=== PATIENT | female | born 1965 | race Caucasian/White ===

== ENCOUNTER → 2017-01-15 | Outpatient (CLI) | payer OTHER ==
--- NOTE | 2017-01-18 09:47 | MM ---
Reason for exam: screening (asymptomatic). Last mammogram was performed 1 year and 5 months ago. History: Family history of endometrial cancer in grandmother at age 55. Physical Findings: A clinical breast exam by your physician is recommended on an annual basis and results should be correlated with mammographic findings. MG Screening Mammo w CAD Bilateral CC and MLO view(s) were taken. Prior study comparison: August 08, 2015, bilateral MG screening mammo w CAD. September 02, 2011, bilateral digital screening mammo w/CAD. The breast tissue is heterogeneously dense. This may lower the sensitivity of mammography. Benign calcifications. There is chronic nodularity bilaterally. No significant new findings when compared with previous films. ASSESSMENT: Benign, BI-RAD 2 RECOMMENDATION: Routine screening mammogram of both breasts in 1 year.
== END | disposition home or self-care (01) ==
LOC: RADMAMWWP 12:39
PROVIDERS: ATTEND Internal Medicine Critical Care Medicine
DX: Z12.31 Encounter for screening mammogram for malignant neoplasm of breast (principal)

== ENCOUNTER → 2018-01-28 | Outpatient (CLI) | payer OTHER ==
[2018-01-28 09:28] LABS: Basophils % (A) 1 %; Eosinophils # (A) 0.2 k/uL (0-0.7); Eosinophils % (A) 3 %; HCT 41.7 % (34.0-46.0); HGB 13.6 gm/dL (11.4-16.0); Lymphocytes # (A) 1.6 k/uL (1.0-4.8); Lymphocytes % (A) 26 %; MCH 28.6 pg (25.0-35.0); MCHC 32.5 g/dL (31.0-37.0); Mean Platelet Volume 7.7; Monocytes # (A) 0.4 k/uL (0-1.0); Monocytes % (A) 6 %; Neutrophils # (A) 3.7 k/uL (1.3-7.7); Neutrophils % (A) 62 %; Platelet Count 250 k/uL (150-450); RBC 4.74 m/uL (3.80-5.40); RDW 13.3 % (11.5-15.5)
[2018-01-28 09:55] LABS: ALT 27 U/L (9-52); AST 18 U/L (14-36); Albumin 4.1 g/dL (3.5-5.0); Alkaline Phosphatase 66 U/L (38-126); Anion Gap 13 mmol/L; Bilirubin, Delta 0.3 mg/dL (0.0-0.2); Bilirubin,Unconjugated 0.4 mg/dL (0.0-1.1); Blood Urea Nitrogen 9 mg/dL (7-17); Carbon Dioxide 27 mmol/L (22-30); Chloride 106 mmol/L (98-107); Cholesterol 168 mg/dL (<200); Glucose 88 mg/dL (74-99); HDL Cholesterol 56 mg/dL (40-60); LDL Cholesterol,Calculated 92 mg/dL (0-99); Potassium 4.6 mmol/L (3.5-5.1); Sodium 146 mmol/L (137-145); Total Bilirubin 0.7 mg/dL (0.2-1.3); Total Protein 6.9 g/dL (6.3-8.2); Triglycerides 101 mg/dL (<150)
[2018-01-28 10:44] LABS: C Reactive Protein <5.0 mg/L (<10.0)
[2018-01-28 12:02] LABS: Erythrocyte Sedimentation Rate 8 mm/hr (0-20)
[2018-01-28 17:57] LABS: Vitamin D 25 Hydroxy 23.4 ng/mL (30.0-100.0)
[2018-01-28 18:13] LABS: Rheumatoid Factor <4 IU/mL (0-15)
[2018-01-28 18:49] LABS: Hemoglobin A1C 5.3 % (4.0-6.0)
== END | disposition home or self-care (01) ==
LOC: LABWHC1 08:49
PROVIDERS: ATTEND Internal Medicine Critical Care Medicine
DX: Z00.00 Encounter for general adult medical examination without abnormal findings (principal)
CPT/HCPCS: 36415; 80053; 80061; 82248; 82306; 83036; 85025; 85652; 86038; 86140; 86431

== ENCOUNTER → 2018-03-14 | Outpatient (CLI) | payer OTHER ==
--- NOTE | 2018-03-15 09:37 | MM ---
Reason for exam: screening (asymptomatic). Last mammogram was performed 1 year and 2 months ago. History: Family history of endometrial cancer in grandmother at age 55. Physical Findings: A clinical breast exam by your physician is recommended on an annual basis and results should be correlated with mammographic findings. MG Screening Mammo w CAD Bilateral CC and MLO view(s) were taken. XCCL view(s) were taken of the right breast. Prior study comparison: January 15, 2017, bilateral MG screening mammo w CAD. August 08, 2015, bilateral MG screening mammo w CAD. The breast tissue is heterogeneously dense. This may lower the sensitivity of mammography. Focal asymmetry upper outer left breast 7.6cm from nipple. This finding is changed when compared with previous exams. ASSESSMENT: Incomplete: need additional imaging evaluation, BI-RAD 0 RECOMMENDATION: Special view mammogram of the left breast. If lesion persists on supplemental views, image directed ultrasound is recommended. [facility] will attempt to contact patient to return for supplemental views and ultrasound if indicated.
== END | disposition home or self-care (01) ==
LOC: RADMAMWWP 10:55
PROVIDERS: ATTEND Internal Medicine Critical Care Medicine
DX: Z12.31 Encounter for screening mammogram for malignant neoplasm of breast (principal)
CPT/HCPCS: 77067

== ENCOUNTER → 2018-03-28 | Outpatient (CLI) | payer OTHER ==
--- NOTE | 2018-03-28 08:34 | MM ---
Reason for exam: additional evaluation requested from abnormal screening. Last mammogram was performed less than 1 month ago. History: Family history of endometrial cancer in grandmother at age 55. Physical Findings: Nurse did not find any significant physical abnormalities on exam. MG Work Up Mamm w CAD LT Spot compression CC, spot compression MLO, and LM view(s) were taken of the left breast. Prior study comparison: March 14, 2018, bilateral MG screening mammo w CAD. January 15, 2017, bilateral MG screening mammo w CAD. The breast tissue is heterogeneously dense. This may lower the sensitivity of mammography. Benign calcifications in the left breast. The upper outer quadrant focal asymmetry appears similar to priors and improves on additional views appearing as fibroglandular tissue. These results were verbally communicated with the patient and result sheet given to the patient on 03/28/18. ASSESSMENT: Benign, BI-RAD 2 RECOMMENDATION: Return to routine screening mammogram schedule for both breasts.
== END | disposition home or self-care (01) ==
LOC: RADMAMWWP 07:39
PROVIDERS: ATTEND Internal Medicine Critical Care Medicine
DX: R92.8 Other abnormal and inconclusive findings on diagnostic imaging of breast (principal)
CPT/HCPCS: 77065

== ENCOUNTER 2018-07-22 09:55 | Day surgery (SDC) | payer OTHER ==
[2018-07-20 10:38] VITALS: BMI 35.4
[~2018-07-22 09:55] MED LIST: LACTATED RINGERS 1,000 ML IV SCH
[2018-07-22 10:28] VITALS: TEMP 97.5
[2018-07-22] MEDS ORDERED: LIDOCAINE 1% 20 ML VIAL (10MG/ML) FOR IV START INTRADERMA ONE (10:36)
[2018-07-22] MEDS ORDERED: PROPOFOL 10 MG/ML 20 ML VIAL IV ONE (10:54)
--- NOTE | 2018-07-22 10:57 | P.GSHP ---
History of Present Illness H&P Date: 07/22/18 Chief Complaint: Colon cancer screening Patient here today for colonoscopy. She has not had 1 previously. No family history of colon cancer. No bowel related complaints. Past Medical History Past Medical History: Asthma, Pneumonia, Thyroid Disorder Additional Past Medical History / Comment(s): Pneumonia 7 yrs ago. Hypothyroid. History of Any Multi-Drug Resistant Organisms: None Reported Past Surgical History: Tubal Ligation, Uterine Ablation Past Anesthesia/Blood Transfusion Reactions: Family History of Problems w/ Anesthesia Additional Past Anesthesia/Blood Transfusion Reaction / Comment(s): Mother takes alot to get her to go out. Past Psychological History: No Psychological Hx Reported Smoking Status: Never smoker Past Alcohol Use History: Occasional Past Drug Use History: None Reported - Past Family History Father Family Medical History: Pulmonary Embolus Brother(s) Family Medical History: Cancer, Deep Vein Thrombosis (DVT) Additional Family Medical History / Comment(s): Bladder cancer. Medications and Allergies Home Medications Medication Instructions Recorded Confirmed Type Levothyroxine Sodium [Synthroid] 125 mcg PO QAM 07/20/18 07/22/18 History Allergies Allergy/AdvReac Type Severity Reaction Status Date / Time aspirin Allergy Rash/Hives Verified 07/20/18 10:40 NSAIDS (Non-Steroidal Allergy Rash/Hives Verified 07/20/18 10:40 Anti-Inflamma Surgical - Exam Vital Signs Temp Pulse Resp BP Pulse Ox 97.5 F L 60 18 141/95 94 L 07/22/18 10:26 07/22/18 10:26 07/22/18 10:26 07/22/18 10:26 07/22/18 10:26 Physical exam: General: Well-developed, well-nourished HEENT: Normocephalic, sclerae nonicteric Abdomen: Nontender, nondistended Extremities: No edema Neuro: Alert and oriented Assessment and Plan (1) Colon cancer screening Narrative/Plan: Will proceed with colonoscopy at this time. Current Visit: Yes Status: Acute Code(s): Z12.11 - ENCOUNTER FOR SCREENING FOR MALIGNANT NEOPLASM OF COLON SNOMED Code(s): 316620293
--- NOTE | 2018-07-22 11:18 | P.PCN ---
Date of Procedure: 07/22/18 Procedure(s) Performed: PREOPERATIVE DIAGNOSIS: Colon cancer screening POSTOPERATIVE DIAGNOSIS: Diverticulosis PROCEDURE: Colonoscopy ANESTHESIA: MAC SURGEON: Rush James M.D. SPECIMENS: None ENDOSCOPIC PROCEDURE: The patient was placed on the endoscopy table in the left decubitus position. The Olympus colonoscope was inserted into the anus and passed under direct visualization to the base of the cecum. The appendiceal orifice was visualized. From that point the scope was slowly withdrawn inspecting all surfaces carefully. There were no neoplastic inflammatory or polypoid lesions throughout the cecum, ascending, transverse, descending, sigmoid and rectum. There was mild left-sided diverticulosis noted. Digital rectal examination was normal. The patient was taken to the recovery room in stable condition per anesthesia guidelines. RECOMMENDATIONS: Increase fiber. Follow-up colonoscopy 10 years.
[2018-07-22 11:34] VITALS: BP 148/73; PULSE 78; RESP 18
== END 2018-07-22 12:09 | disposition home or self-care (01) ==
LOC: ORWHC2ENDO 09:55
PROVIDERS: ATTEND Surgery
DX: Z12.11 Encounter for screening for malignant neoplasm of colon (principal); K57.30 Diverticulosis of large intestine without perforation or abscess without bleeding; J45.909 Unspecified asthma, uncomplicated; E03.9 Hypothyroidism, unspecified; Z98.51 Tubal ligation status; Z79.890 Hormone replacement therapy; Z88.6 Allergy status to analgesic agent
CPT/HCPCS: 81025; J2704; G0121

== ENCOUNTER → 2019-02-08 | Outpatient (CLI) | payer OTHER ==
[2019-02-08 09:09] LABS: Basophils # (A) 0.1 k/uL (0-0.2); Basophils % (A) 1 %; Eosinophils # (A) 0.2 k/uL (0-0.7); Eosinophils % (A) 3 %; HCT 42.3 % (34.0-46.0); HGB 13.4 gm/dL (11.4-16.0); Lymphocytes # (A) 1.5 k/uL (1.0-4.8); Lymphocytes % (A) 24 %; MCH 27.9 pg (25.0-35.0); MCHC 31.8 g/dL (31.0-37.0); MCV 87.6 fL (80.0-100.0); Mean Platelet Volume 7.5; Monocytes # (A) 0.3 k/uL (0-1.0); Monocytes % (A) 5 %; Neutrophils # (A) 4.2 k/uL (1.3-7.7); Neutrophils % (A) 66 %; Platelet Count 248 k/uL (150-450); RBC 4.82 m/uL (3.80-5.40); RDW 13.6 % (11.5-15.5); WBC 6.5 k/uL (3.8-10.6)
[2019-02-08 17:09] LABS: Hemoglobin A1C 5.7 % (4.0-6.0)
[2019-02-08 18:55] LABS: Albumin 4.2 g/dL (3.80-4.90); Albumin/Globulin Ratio 1.68 (1.60-3.17); Calcium 8.9 mg/dL (8.7-10.3); Globulin 2.5 g/dL (1.6-3.3); LDL Cholesterol,Calculated 112.2 mg/dL (0.0-131.0); Total Bilirubin 0.6 mg/dL (0.2-1.2); Total Protein 6.7 g/dL (6.2-8.2); VLDL Calculation 16.8 mg/dL (5.00-40.00)
== END | disposition home or self-care (01) ==
LOC: LABWHC1 08:08
PROVIDERS: ATTEND Internal Medicine Critical Care Medicine
DX: Z00.00 Encounter for general adult medical examination without abnormal findings (principal); J45.909 Unspecified asthma, uncomplicated; E03.9 Hypothyroidism, unspecified; E56.9 Vitamin deficiency, unspecified
CPT/HCPCS: 36415; 80053; 80061; 82306; 83036; 84439; 84443; 85025

== ENCOUNTER → 2020-02-16 | Outpatient (CLI) | payer BC ==
[2020-02-16 09:13] LABS: Basophils # (A) 0.1 k/uL (0-0.2); Basophils % (A) 1 %; Eosinophils # (A) 0.3 k/uL (0-0.7); Eosinophils % (A) 5 %; HCT 41.6 % (34.0-46.0); HGB 13.1 gm/dL (11.4-16.0); Lymphocytes # (A) 1.4 k/uL (1.0-4.8); Lymphocytes % (A) 26 %; MCH 27.7 pg (25.0-35.0); MCHC 31.5 g/dL (31.0-37.0); MCV 88.1 fL (80.0-100.0); Mean Platelet Volume 7.7; Monocytes # (A) 0.3 k/uL (0-1.0); Monocytes % (A) 6 %; Neutrophils # (A) 3.4 k/uL (1.3-7.7); Neutrophils % (A) 60 %; Platelet Count 216 k/uL (150-450); RBC 4.71 m/uL (3.80-5.40); RDW 13.1 % (11.5-15.5); WBC 5.6 k/uL (3.8-10.6)
[2020-02-16 16:06] LABS: African American GFR (CKD) 95.5 (60.0-200.0); Albumin/Globulin Ratio 1.67 (1.60-3.17); Anion Gap 7.2 mmol/L (4.00-12.00); BUN/Creat Ratio 16.25 Ratio (12.00-20.00); Calcium 8.9 mg/dL (8.7-10.3); Carbon Dioxide 26.8 mmol/L (21.6-31.8); Chol/HDL Ratio 3.02; Globulin 2.4 g/dL (1.6-3.3); LDL Cholesterol,Calculated 78.6 mg/dL (0.0-131.0); Non-African American GFR(CKD) 82.4 (60.0-200.0); Potassium 4.1 mmol/L (3.5-5.5); Total Bilirubin 0.7 mg/dL (0.2-1.2); Total Protein 6.4 g/dL (6.2-8.2); VLDL Calculation 22.4 mg/dL (5.00-40.00)
[2020-02-16 16:15] LABS: T4, Free (Free Thyroxine) 1.6 ng/dL (0.80-1.80)
[2020-02-16 17:46] LABS: Hemoglobin A1C 5.6 % (4.0-6.0)
== END | disposition home or self-care (01) ==
LOC: LABWHC1 08:30
PROVIDERS: ATTEND Internal Medicine Critical Care Medicine
DX: Z00.00 Encounter for general adult medical examination without abnormal findings (principal); E03.9 Hypothyroidism, unspecified; E55.9 Vitamin D deficiency, unspecified; J45.909 Unspecified asthma, uncomplicated
CPT/HCPCS: 36415; 80053; 80061; 82306; 83036; 84439; 84443; 85025

== ENCOUNTER → 2021-05-14 | Outpatient (CLI) | payer BC ==
[2021-05-14 12:08] LABS: Basophils # (A) 0.04 X 10*3/uL (0.00-0.10); Basophils % (A) 0.8 %; Eosinophils # (A) 0.16 X 10*3/uL (0.04-0.35); HCT 40.6 % (37.2-46.3); HGB 12.9 g/dL (12.0-15.0); Lymphocytes # (A) 1.49 X 10*3/uL (0.90-5.00); Lymphocytes % (A) 28.2 %; MCH 28.7 pg (27.0-32.0); MCHC 31.8 g/dL (32.0-37.0); MCV 90.4 fL (80.0-97.0); Mean Platelet Volume 10.7 fL (9.5-12.2); Monocytes # (A) 0.44 X 10*3/uL (0.20-1.00); Monocytes % (A) 8.3 %; Neutrophils # (A) 3.15 X 10*3/uL (1.80-7.70); Neutrophils % (A) 59.5 %; Platelet Count 240 X 10*3/uL (140-440); RBC 4.49 X 10*6/uL (4.10-5.20); RDW 12.5 % (11.5-14.5); WBC 5.29 X 10*3/uL (4.50-10.00)
[2021-05-14 12:20] LABS: African American GFR (CKD) 82.3 (60.0-200.0); Albumin 4.2 g/dL (3.80-4.90); Albumin/Globulin Ratio 1.56 (1.60-3.17); Anion Gap 8.7 mmol/L (4.00-12.00); BUN/Creat Ratio 13.33 Ratio (12.00-20.00); Calcium 9.4 mg/dL (8.7-10.3); Carbon Dioxide 28.3 mmol/L (21.6-31.8); Chol/HDL Ratio 3.47; Globulin 2.7 g/dL (1.6-3.3); Potassium 4.4 mmol/L (3.5-5.5); Total Bilirubin 0.6 mg/dL (0.3-1.2); Total Protein 6.9 g/dL (6.2-8.2)
[2021-05-14 12:28] LABS: T4, Free (Free Thyroxine) 1.2 ng/dL (0.80-1.80)
[2021-05-14 15:58] LABS: Hemoglobin A1C 5.3 % (4.0-6.0)
== END | disposition home or self-care (01) ==
LOC: LABWHC1 07:38
PROVIDERS: ATTEND Internal Medicine Critical Care Medicine
DX: Z00.00 Encounter for general adult medical examination without abnormal findings (principal); E03.9 Hypothyroidism, unspecified; J45.909 Unspecified asthma, uncomplicated
CPT/HCPCS: 36415; 80053; 80061; 82306; 83036; 84439; 84443; 85025

== ENCOUNTER → 2022-05-30 | Outpatient (CLI) | payer MEDICAID ==
[2022-05-30 16:34] LABS: Basophils # (A) 0.05 X 10*3/uL (0.00-0.10); Basophils % (A) 0.9 %; Eosinophils # (A) 0.15 X 10*3/uL (0.04-0.35); Eosinophils % (A) 2.8 %; HCT 39.2 % (37.2-46.3); HGB 12.7 g/dL (12.0-15.0); Immature Grans, Automated 0.2 %; Lymphocytes # (A) 1.87 X 10*3/uL (0.90-5.00); Lymphocytes % (A) 34.7 %; MCH 28.6 pg (27.0-32.0); MCHC 32.4 g/dL (32.0-37.0); MCV 88.3 fL (80.0-97.0); Mean Platelet Volume 10.2 fL (9.5-12.2); Monocytes # (A) 0.49 X 10*3/uL (0.20-1.00); Monocytes % (A) 9.1 %; NRBC Per 100 WBC 0 /100 WBCS (0.0-0.0); Neutrophils # (A) 2.82 X 10*3/uL (1.80-7.70); Neutrophils % (A) 52.3 %; Platelet Count 251 X 10*3/uL (140-440); RBC 4.44 X 10*6/uL (4.10-5.20); WBC 5.39 X 10*3/uL (4.50-10.00)
[2022-05-30 17:31] LABS: ALT 34 U/L (8-44); AST 32 U/L (13-35); African American GFR (CKD) 83.9 (60.0-200.0); Albumin 4.2 g/dL (3.8-4.9); Albumin/Globulin Ratio 1.65 (1.60-3.17); Alkaline Phosphatase 87 U/L (41-126); BUN/Creat Ratio 14.32 Ratio (12.00-20.00); Blood Urea Nitrogen 12.6 mg/dL (9.0-27.0); Chloride 105 mmol/L (96-109); Chol/HDL Ratio 3.44 Ratio; Globulin 2.5 g/dL (1.6-3.3); Glucose 107 mg/dL (70-110); Non-African American GFR(CKD) 72.4 (60.0-200.0); Potassium 3.8 mmol/L (3.5-5.5); Sodium 143 mmol/L (135-145); Total Protein 6.7 g/dL (6.2-8.2); VLDL Calculation 18.86 mg/dL (5.00-40.00)
== END | disposition home or self-care (01) ==
LOC: LABWHC1 08:56
PROVIDERS: ATTEND Internal Medicine Critical Care Medicine
DX: Z00.00 Encounter for general adult medical examination without abnormal findings (principal); E55.9 Vitamin D deficiency, unspecified; E03.9 Hypothyroidism, unspecified
CPT/HCPCS: 36415; 80053; 80061; 82306; 83036; 84439; 84443; 85025

== ENCOUNTER → 2022-08-04 | Outpatient (CLI) | payer MEDICAID ==
--- NOTE | 2022-08-04 08:24 | BD ---
EXAMINATION TYPE: Axial Bone Density DATE OF EXAM: 08/04/2022 COMPARISON: FIRST DEXA AT [facility] CLINICAL HISTORY: 56 years year old Female. ICD-10 CODE: N95.1 MENOPAUSAL SX Height: 68IN Weight: 255LB FRAX RISK QUESTIONS: Secondary Osteoporosis: RISK FACTORS HISTORY OF: Active: YES Postmenopausal woman: YES MEDICATIONS: Thyroid Medications: Which medication: Levothyroxine How LonYRS Additional Medications: BP MED, CALCIUM WITH VITAMIN D Additional History: EXAM MEASUREMENTS: Bone mineral densitometry was performed using the [employer] System. Bone mineral density as measured about the Lumbar spine is: ----- L1-L4(G/cm2): 1.523 T Score Values are as follows: ----- L1: 1.6 ----- L2: 1.1 ----- L3: 2.7 ----- L4: 4.9 ----- L1-L4: 2.9 FIRST DEXA AT [facility] Bone mineral density about the R hip (g/cm2): 1.155 Bone mineral density about the L hip (g/cm2): 1.197 T Score values are as follows: -----R Neck: 0.0 -----L Neck: 0.1 -----R Total: 1.2 -----L Total: 1.5 FRAX%s: The graph provided illustrates a 5.3% chance for a major osteoporotic fx and a 0.1% chance fo r the hips probability for fx in 10 years time. IMPRESSION: Normal (Values between +1 and -1 indicate normal bone mass). Consider repeating this study in 5 year s or sooner if there is some new clinical indication. NOTE: T-SCORE=SD OF THE YOUNG ADULT MEAN.
--- NOTE | 2022-08-04 10:56 | MM ---
Reason for Exam: Screening (asymptomatic). Last mammogram was performed 4 year(s) and 5 month(s) ago. Patient History: Menarche at age 11. First Full-Term at age 22. Maternal grandmother had endometrial cancer, age 55. Risk Values: Rosaura 5 year model risk: 1.2%. NCI Lifetime model risk: 6.9%. Prior Study Comparison: 01/15/2017 Bilateral Screening Mammogram, [facility]. 03/14/2018 Bilateral Screening Mammogram, [facility]. 03/28/2018 Left Diagnostic Mammogram, [facility]. Tissue Density: The breast tissue is heterogeneously dense. This may lower the sensitivity of mammography. Findings: Analyzed By CAD. There are scattered benign-appearing round calcifications throughout the bilateral breasts redemonstrated. Benign-appearing bilateral axillary lymph nodes are again seen. There is no suspicious new group of microcalcifications or new suspicious mass in either breast. Overall Assessment: Benign, BI-RAD 2 Management: Screening Mammogram of both breasts in 1 year. A clinical breast exam by your physician is recommended on an annual basis and results should be correlated with mammographic findings. Electronically signed and approved by: Yannick Sanford M.D.
== END | disposition home or self-care (01) ==
LOC: RADMAMWWP 07:23
PROVIDERS: ATTEND Obstetrics & Gynecology
DX: Z12.31 Encounter for screening mammogram for malignant neoplasm of breast (principal); N95.1 Menopausal and female climacteric states
CPT/HCPCS: 77063; 77067; 77080

== ENCOUNTER → 2023-07-09 | Outpatient (CLI) | payer MEDICAID ==
[2023-07-09 16:41] LABS: Basophils # (A) 0.08 X 10*3/uL (0.00-0.10); Basophils % (A) 1.1 %; Eosinophils # (A) 0.56 X 10*3/uL (0.04-0.35); Eosinophils % (A) 7.6 %; HCT 41.8 % (37.2-46.3); HGB 13.1 d/dL (12.0-15.0); Lymphocytes # (A) 1.86 X 10*3/uL (0.90-5.00); Lymphocytes % (A) 25.2 %; MCH 28.1 pg (27.0-32.0); MCHC 31.3 d/dL (32.0-37.0); MCV 89.7 FL (80.0-97.0); Mean Platelet Volume 10.9 FL (9.5-12.2); Monocytes # (A) 0.54 X 10*3/uL (0.20-1.00); Monocytes % (A) 7.3 %; NRBC Per 100 WBC 0 X 10*3/uL (0.00-0.01); Neutrophils # (A) 4.33 X 10*3/uL (1.80-7.70); Neutrophils % (A) 58.5 %; Platelet Count 274 X 10*3/uL (140-440); RBC 4.66 X 10*6/uL (4.10-5.20); RDW 12.8 % (11.5-14.5); WBC 7.39 X 10*3/uL (4.50-10.00)
[2023-07-09 17:00] LABS: ALT 22 U/L (8-44); AST 19 U/L (13-35); Albumin 4.2 d/dL (3.8-4.9); Albumin/Globulin Ratio 1.56 Ratio (1.60-3.17); Alkaline Phosphatase 87 U/L (41-126); BUN/Creat Ratio 16.78 Ratio (12.00-20.00); Blood Urea Nitrogen 15.1 mg/dL (9.0-27.0); Calcium 9.1 mg/dL (8.7-10.3); Carbon Dioxide 27.1 mmol/L (21.6-31.8); Chloride 104 mmol/L (96-109); Chol/HDL Ratio 3.66 Ratio; Globulin 2.7 d/dL (1.6-3.3); Glucose 114 mg/dL (70-110); LDL Cholesterol,Calculated 90.7 mg/dL (0.0-131.0); Potassium 3.8 mmol/L (3.5-5.5); Sodium 141 mmol/L (135-145); T4, Free (Free Thyroxine) 1.72 ng/dL (0.80-1.80); Total Bilirubin 0.5 mg/dL (0.3-1.2); Total Protein 6.9 d/dL (6.2-8.2)
== END | disposition home or self-care (01) ==
LOC: LABWHC1 08:25
PROVIDERS: ATTEND Internal Medicine Critical Care Medicine
DX: Z00.00 Encounter for general adult medical examination without abnormal findings (principal); E55.9 Vitamin D deficiency, unspecified; E03.9 Hypothyroidism, unspecified; J45.909 Unspecified asthma, uncomplicated
CPT/HCPCS: 36415; 80053; 80061; 82306; 83036; 84439; 84443; 85025

== ENCOUNTER 2023-07-20 14:26 | Day surgery (SDC) | payer MEDICAID ==
[2023-07-16 13:38] VITALS: BMI 38.0
[~2023-07-20 14:26] MED LIST changes: +LIDOCAINE 1% (10MG/ML) FOR IV START INTRADERMA PRN
[2023-07-20 14:55] VITALS: TEMP 98
[2023-07-20] MEDS ORDERED: PROPOFOL 10 MG/ML 20 ML VIAL IV ONE (15:17)
--- NOTE | 2023-07-20 15:26 | P.GSHP ---
History of Present Illness H&P Date: 07/20/23 Chief Complaint: Rectal bleeding 57-year-old female here for colonoscopy. Patient with recent rectal bleeding over the last 6 months. Some lower abdominal pain. No family history of colon cancer. Last colonoscopy 5 years ago showed diverticulosis. Past Medical History Past Medical History: Asthma, Pneumonia, Skin Disorder, Thyroid Disorder Additional Past Medical History / Comment(s): Pneumonia 7 yrs ago. Hypothyroid., excema as a child History of Any Multi-Drug Resistant Organisms: None Reported Past Surgical History: Tubal Ligation, Uterine Ablation Past Anesthesia/Blood Transfusion Reactions: Family History of Problems w/ Anesthesia Additional Past Anesthesia/Blood Transfusion Reaction / Comment(s): Mother takes alot to get her to go out. Smoking Status: Never smoker - Past Family History Father Family Medical History: Pulmonary Embolus Brother(s) Family Medical History: Cancer, Deep Vein Thrombosis (DVT) Additional Family Medical History / Comment(s): Bladder cancer. Medications and Allergies Home Medications Medication Instructions Recorded Confirmed Type Levothyroxine Sodium [Synthroid] 125 mcg PO QAM 07/20/18 07/16/23 History Losartan-Hctz 50-12.5 mg [Hyzaar 1 tab PO DAILY 07/16/23 07/16/23 History 50-12.5] Allergies Allergy/AdvReac Type Severity Reaction Status Date / Time aspirin Allergy Rash/Hives Verified 07/20/18 10:40 NSAIDS (Non-Steroidal Allergy Rash/Hives Verified 07/20/18 10:40 Anti-Inflamma Surgical - Exam Vital Signs Temp Pulse Resp BP Pulse Ox 98.0 F 81 16 160/74 94 L 07/20/23 14:53 07/20/23 14:53 07/20/23 14:53 07/20/23 14:53 07/20/23 14:53 Physical exam: General: Well-developed, well-nourished HEENT: Normocephalic, sclerae nonicteric Abdomen: Nontender, nondistended Extremities: No edema Neuro: Alert and oriented Assessment and Plan (1) Rectal bleeding Narrative/Plan: Will proceed with colonoscopy this time. Current Visit: Yes Status: Acute Code(s): K62.5 - HEMORRHAGE OF ANUS AND RECTUM SNOMED Code(s): 10130966
--- NOTE | 2023-07-20 15:56 | P.PCN ---
Date of Procedure: 07/20/23 Procedure(s) Performed: PREOPERATIVE DIAGNOSIS: Rectal bleeding POSTOPERATIVE DIAGNOSIS: Rectal mass, rectal polyps, diverticulosis PROCEDURE: Colonoscopy with snare polypectomy and biopsy ANESTHESIA: MAC SURGEON: Rush James M.D. SPECIMENS: Rectal mass, rectal polyps ENDOSCOPIC PROCEDURE: The patient was placed on the endoscopy table in the left decubitus position. The Olympus colonoscope was inserted into the anus and passed under direct visualization to the base of the cecum. The appendiceal o rifice was visualized. From that point the scope was slowly withdrawn inspecting all surfaces carefully. There were no neoplastic inflammatory or polypoid lesions throughout the cecum, ascending, transverse, descending, and sigmoid colon. Between 10 and 16 cm there was a non-circumferential mass that was friable and had the appearance of malignancy. Multiple cold biopsies were taken. This was able to be palpated on digital rectal examination at the tip of the index finger on the right hand side. The patient had 2 small polyps in the distal rectum that were removed using the snare with cautery technique. The patient had sigmoid diverticulosis with fairly impressive tortuosity and some luminal narrowing suggestive of chronic diverticular change. The patient was taken to the recovery room in stable condition per anesthesia guidelines. RECOMMENDATIONS: Await results. Will order CT abdomen and pelvis. We'll consult with oncology at this time.
[2023-07-20 17:02] VITALS: BP 123/70; PULSE 80; RESP 20
== END 2023-07-20 17:03 | disposition home or self-care (01) ==
LOC: ORWHC2ENDO 14:26
PROVIDERS: ATTEND Surgery
DX: D12.8 Benign neoplasm of rectum (principal); C20 Malignant neoplasm of rectum; J45.909 Unspecified asthma, uncomplicated; J18.9 Pneumonia, unspecified organism; E03.9 Hypothyroidism, unspecified; G43.909 Migraine, unspecified, not intractable, without status migrainosus; E56.9 Vitamin deficiency, unspecified; K57.90 Diverticulosis of intestine, part unspecified, without perforation or abscess without bleeding; I10 Essential (primary) hypertension; Z98.890 Other specified postprocedural states; Z79.890 Hormone replacement therapy; Z88.6 Allergy status to analgesic agent
CPT/HCPCS: 88305; 45380; 45385; J2704

== ENCOUNTER → 2023-07-29 | Outpatient (CLI) | payer MEDICAID ==
--- NOTE | 2023-07-30 08:44 | CT ---
EXAMINATION TYPE: CT ChestAbdPelvis w con DATE OF EXAM: 07/29/2023 COMPARISON: None HISTORY: Dx with colon/rectal cancer 07/20/23. Staging for Ca. CT DLP: 2270.4 mGycm Automated exposure control for dose reduction was used. CONTRAST: CT scan of the chest, abdomen and pelvis is performed with Oral Contrast and with IV Contrast, patien t injected with 100 cc mL of Isovue 300. FINDINGS: LUNGS: There is a 1.6 cm right upper lobe subpleural mass axial image 30 series #6. No additional nod ules are seen and no pleural effusion. No pneumothorax MEDIASTINUM: There are no greater than 1 cm hilar or mediastinal lymph nodes. Heart size is mildly pr ominent. Aorta normal caliber and there is trace pericardial fluid.. OTHER: No additional significant abnormality is seen. LIVER/GB: The liver is low in attenuation overlying the hepatic stenosis. PANCREAS: No significant abnormality is seen. SPLEEN: No significant abnormality is seen. ADRENALS: No significant abnormality is seen. KIDNEYS: No hydronephrosis or nephrolithiasis. There is a exophytic upper pole left renal lesion clare uring 5 Hounsfield units and 2.2 cm compatible with Bosniak class. There is a interpolar right renal lesion measuring 25 Hounsfield units and 2.2 cm. Does not meet the criteria of a simple cyst. Additio nal bilateral subcentimeter hypodensities too small to characterize. BOWEL: Retained fecal debris throughout the colon limits evaluation. Mild diverticulosis no CT evide nce of diverticulitis. There is mild wall localized near the splenic flexure and rectosigmoid junctio n which may account for the patient's reported history. REPRODUCTIVE ORGANS: No gross abnormality seen. LYMPH NODES: No greater than 1 cm abdominal or pelvic lymph nodes are appreciated. Shotty subcentimet er lymph nodes seen in the abdomen including the atsh hepatis. OSSEOUS STRUCTURES: Multilevel hypertrophic and degenerative change severe changes L4-5 and grade 1 a nterolisthesis. Multilevel facet arthropathy. Vertebral body hemangioma T10. OTHER: Aorta normal caliber. No free fluid or free air. IMPRESSION: 1. There is a 1.6 cm right upper lobe pulmonary Mass. Recommend PET scan 2. Hepatomegaly with hepatic steatosis. 3. Indeterminate right renal lesion. Recommend ultrasound. 4. Mild wall thickening near the rectosigmoid junction and splenic flexure is nonspecific. Correlatio n with colonoscopy results.
== END | disposition home or self-care (01) ==
LOC: RADCTMAIN 15:46
PROVIDERS: ATTEND Surgery
DX: C20 Malignant neoplasm of rectum (principal); K76.0 Fatty (change of) liver, not elsewhere classified; R16.0 Hepatomegaly, not elsewhere classified; K63.89 Other specified diseases of intestine; R91.8 Other nonspecific abnormal finding of lung field
CPT/HCPCS: 71260; 74177; Q9967

== ENCOUNTER → 2023-09-28 | Outpatient (CLI) | payer MEDICAID ==
--- NOTE | 2023-09-29 17:14 | MM ---
Reason for Exam: Screening (asymptomatic). Last mammogram was performed 1 year(s) and 2 month(s) ago. Patient History: Menarche at age 11. First Full-Term at age 22. Postmenopausal. Colorectal cancer, age 58. Maternal grandmother had endometrial cancer, age 55. Risk Values: Rosaura 5 year model risk: 1.3%. NCI Lifetime model risk: 6.6%. Prior Study Comparison: 03/14/2018 Bilateral Screening Mammogram, [facility]. 03/28/2018 Left Diagnostic Mammogram, [facility]. 08/04/2022 Bilateral MG 3D screening mammo w/cad, [facility]. Tissue Density: The breast tissue is heterogeneously dense. This may lower the sensitivity of mammography. Findings: Analyzed By CAD. Pattern appears symmetrical and stable. No significant interval change is evident. Scattered benign spherical and punctate calcifications are present bilaterally. No suspicious groups of microcalcifications, spiculated or lobular masses, architectural distortion or other secondary signs of malignancy are mammographically apparent. Overall Assessment: Benign, BI-RAD 2 Management: Screening Mammogram of both breasts in 1 year. A negative mammogram report should not preclude additional follow up of suspicious palpable abnormalities. Patient should continue monthly self breast exam. A clinical breast exam by your physician is recommended on an annual basis and results should be correlated with mammographic findings. Electronically signed and approved by: Farhan Lopez D.O. Radiologis
== END | disposition home or self-care (01) ==
LOC: RADMAMWWP 11:30
PROVIDERS: ATTEND Internal Medicine Hematology & Oncology
DX: Z12.31 Encounter for screening mammogram for malignant neoplasm of breast (principal); Z78.0 Asymptomatic menopausal state
CPT/HCPCS: 77063; 77067

== ENCOUNTER → 2023-12-22 | Outpatient (CLI) | payer MEDICAID ==
--- NOTE | 2023-12-27 08:15 | MR ---
EXAMINATION TYPE: MR Rectal wo/w con DATE OF EXAM: 12/22/2023 12:24 PM CLINICAL INDICATION:Female, 58 years old with history of C20 MALIGNANT NEOPLASM OF RECTUM; [facility], Post chemo f/u of rectal neoplasm COMPARISON: 07/28/2023, PET/CT 11/18/2023 TECHNIQUE: Multiplanar, multisequence imaging was performed on a 3T MR scanner with optimized small f ield of view imaging of the rectum. Orthogonal high resolution T2 weighted imaging was obtained thro ugh the rectal mass with additional sequences including T1 weighted images and diffusion weighted sharlene ging. IV CONTRAST: 10GadavistNone. FINDINGS: Interval reduction of wall thickening in the area of prior neoplasm proximately 5.4 cm from the top of anal sphincter complex/anorectal junction. No abnormal restricted diffusion is seen withi n this region.. No abnormal postcontrast enhancement visualized on postcontrast sequences. No enlargi ng lymph nodes identified. Specifically no greater than 1.0 cm short axis lymph nodes identified. Scattered colonic diverticula. The uterus including endometrium is within normal limits. Urinary blad remi wall is within normal limits for size. IMPRESSION: Positive response to treatment with decrease in size of prior tumor. Abnormal contrast en hancement to suggest residual tumor at this time. Continued attention surveillance imaging. No lympha denopathy identified.
== END | disposition home or self-care (01) ==
LOC: RADMRIMAIN 10:32
PROVIDERS: ATTEND Radiology Radiation Oncology
DX: C77.9 Secondary and unspecified malignant neoplasm of lymph node, unspecified (principal); C20 Malignant neoplasm of rectum
CPT/HCPCS: 72197; A9585

== ENCOUNTER → 2024-05-19 | Outpatient (CLI) | payer MEDICAID ==
--- NOTE | 2024-05-19 19:34 | MR ---
EXAMINATION TYPE: MR Rectal wo con DATE OF EXAM: 05/19/2024 9:40 AM CLINICAL INDICATION: Female, 58 years old with history of C20 MALIGNANT NEOPLASM OF RECTUM; [facility], COMPARISON: 12/22/2023 TECHNIQUE: Multiplanar, multisequence imaging was performed on a 3T MR scanner with optimized small f ield of view imaging of the rectum. Orthogonal high resolution T2 weighted imaging was obtained thro ugh the rectal mass with additional sequences including T1 weighted images and diffusion weighted sharlene ging. IV CONTRAST: None. FINDINGS: Stable exam without evidence of neoplasm which was previously 5.4 cm from the top of anal sphincter c omplex/anorectal junction. No abnormal restricted diffusion is seen within this region.. There remain s no abnormal postcontrast enhancement visualized on postcontrast sequences. No enlarging lymph nodes identified. Specifically no greater than 1.0 cm short axis lymph nodes identified. Scattered colonic diverticula. The uterus including endometrium is within normal limits. Urinary blad remi wall is within normal limits for size. IMPRESSION: Similar exam with no evidence for lymphadenopathy or recurrent tumor.
== END | disposition home or self-care (01) ==
LOC: RADMRIMAIN 08:20
PROVIDERS: ATTEND Internal Medicine Hematology & Oncology
DX: C20 Malignant neoplasm of rectum (principal)
CPT/HCPCS: 72195

== ENCOUNTER 2024-09-05 07:41 | Day surgery (SDC) | payer MEDICAID ==
[2024-09-05] MEDS: IV FLUID CONTINUATION 1,000 ML IV ONE (07:51)
[2024-09-05] MEDS ORDERED: LIDOCAINE 1% (10MG/ML) FOR IV START INTRADERMA PRN (07:52)
[2024-09-05 07:56] VITALS: TEMP 97
[2024-09-05] MEDS: LACTATED RINGERS 1,000 ML IV SCH (08:14)
[2024-09-05 08:15] LABS: Glucose,Whole Blood 114 mg/dL (70-110)
[2024-09-05] MEDS: NA PHOS,M-B/NA PHOS,DI-BA 133 ML ENEMA RECTAL ONE (08:16)
[2024-09-05] MEDS ORDERED: PROPOFOL 10 MG/ML 20 ML VIAL IV ONE (09:01)
--- NOTE | 2024-09-05 09:03 | P.GSHP ---
History of Present Illness H&P Date: 09/05/24 Chief Complaint: Rectal cancer 58-year-old female here for colonoscopy. Patient diagnosed with rectal cancer and underwent neoadjuvant chemoradiation. Patient had complete response by exam. Recent MRI normal per patient. Here for repeat flexible sigmoidoscopy. Past Medical History Past Medical History: Asthma, Cancer, Diabetes Mellitus, Hypertension, Pneumonia, Thyroid Disorder Additional Past Medical History / Comment(s): RECTAL CANCER 2022-had chemo, radiation, pre-diabetic, current cough, not productive, no fever, did not covid test, feels fine other than cough for 2-3 weeks History of Any Multi-Drug Resistant Organisms: None Reported Past Surgical History: Tubal Ligation, Uterine Ablation Additional Past Surgical History / Comment(s): colonoscopies, flex. sigmoidoscopies Past Anesthesia/Blood Transfusion Reactions: Family History of Problems w/ Anesthesia Additional Past Anesthesia/Blood Transfusion Reaction / Comment(s): Mother takes alot to get her to go out. Smoking Status: Never smoker - Past Family History Father Family Medical History: Pulmonary Embolus Brother(s) Family Medical History: Cancer, Deep Vein Thrombosis (DVT) Additional Family Medical History / Comment(s): Bladder cancer. Medications and Allergies Home Medications Medication Instructions Recorded Confirmed Type Levothyroxine Sodium [Synthroid] 150 mcg PO QAM 07/20/18 09/05/24 History Multivitamin [Multivitamins Adult 1 tab PO DAILY 08/20/23 09/05/24 History Gummies] Fish Oil/Dha/Epa [Fish Oil 1,200 1 capsule PO DAILY 05/15/24 09/05/24 History mg Fish Oil] Levothyroxine Sodium [Synthroid] 50 mcg PO WEEKLY 05/15/24 09/05/24 History metFORMIN HCL 500 mg PO DAILY 05/15/24 09/05/24 History Benzonatate [Tessalon Perles] 100 mg PO TID PRN 09/01/24 09/05/24 History Losartan-Hctz 50-12.5 mg [Hyzaar 1 tab PO DAILY 09/01/24 09/05/24 History 50-12.5] Allergies Allergy/AdvReac Type Severity Reaction Status Date / Time aspirin Allergy Rash/Hives Verified 09/05/24 07:52 NSAIDS (Non-Steroidal Allergy Rash/Hives Verified 09/05/24 07:52 Anti-Inflamma Surgical - Exam Vital Signs Temp Pulse Resp BP Pulse Ox 97.0 F L 69 16 141/65 95 09/05/24 07:54 09/05/24 07:54 09/05/24 07:54 09/05/24 07:54 09/05/24 07:54 Physical exam: General: Well-developed, well-nourished HEENT: Normocephalic, sclerae nonicteric Abdomen: Nontender, nondistended Extremities: No edema Neuro: Alert and oriented Results - Labs Abnormal Lab Results - Last 24 Hours (Table) 09/05/24 Range/Units 08:13 POC Glucose (mg/dL) 114 H (70-110) mg/dL Assessment and Plan (1) Rectal cancer Narrative/Plan: Will proceed with flexible sigmoidoscopy at this time. Current Visit: No Status: Acute Code(s): C20 - MALIGNANT NEOPLASM OF RECTUM SNOMED Code(s): 246303457
--- NOTE | 2024-09-05 09:16 | P.PCN ---
Date of Procedure: 09/05/24 Procedure(s) Performed: PREOPERATIVE DIAGNOSIS: Rectal cancer POSTOPERATIVE DIAGNOSIS: Mild proctitis PROCEDURE: Flexible sigmoidoscopy with biopsy ANESTHESIA: MAC SURGEON: Rush James M.D. SPECIMENS: Mild proctitis ENDOSCOPIC PROCEDURE: The patient was placed on the endoscopy table in the left decubitus position. The Olympus colonoscope was inserted into the anus and passed under direct visualization to the distal sigmoid colon. From that point the scope was withdrawn. In the distal to mid rectum there was noted to be a area of suspected scarring. It was very difficult to visualize where the tumor had been previously. There is a small amount of proctitis there. [address] in that area. The remainder of the rectum was normal. Digital rectal examination was normal. The patient was taken to the recovery room in stable condition per anesthesia guidelines. RECOMMENDATIONS: Await biopsy results. Anticipate normal findings. If so recommend repeat colonoscopy 1 year.
[2024-09-05 09:51] VITALS: BP 101/63; PULSE 72; RESP 17
== END 2024-09-05 09:54 | disposition home or self-care (01) ==
LOC: ORWHC2ENDO 07:41
PROVIDERS: ATTEND Surgery
DX: K62.89 Other specified diseases of anus and rectum (principal); E11.9 Type 2 diabetes mellitus without complications; I10 Essential (primary) hypertension; J45.909 Unspecified asthma, uncomplicated; E03.9 Hypothyroidism, unspecified; Z79.84 Long term (current) use of oral hypoglycemic drugs; Z85.048 Personal history of other malignant neoplasm of rectum, rectosigmoid junction, and anus; Z88.6 Allergy status to analgesic agent; Z98.51 Tubal ligation status; Z79.890 Hormone replacement therapy; Z79.899 Other long term (current) drug therapy
CPT/HCPCS: 88305; 45331; J2704; 45330

== ENCOUNTER → 2024-12-11 | Outpatient (CLI) | payer MEDICAID ==
[2024-12-11 15:34] LABS: African American GFR (CKD) >90 (>60 ml/min/1.73 sqM); Blood Urea Nitrogen 19 mg/dL (7-17); Non-African American GFR(CKD) 84 (>60 ml/min/1.73 sqM)
--- NOTE | 2024-12-11 20:46 | CT ---
EXAMINATION TYPE: CT ChestAbdPelvis w con DATE OF EXAM: 12/11/2024 5:26 PM COMPARISON: 07/29/2023, 11/18/2023, 08/05/2023 CLINICAL INDICATION: Female, 59 years old with history of C20 RECTUM CANCER; [facility], F/u for rectal canc er. Technique: CT ChestAbdPelvis w con; Multiple axial images were obtained. Two-dimensional coronal and sagittal reconstructions were obtained. Contrast used:100ml mL of Isovue 300 with IV Contrast, (None if empty) Oral contrast used: with Oral Contrast CT DLP: 2146.9 mGycm, Automated exposure control for dose reduction was used. Findings: CHEST: LUNGS/ PLEURA: Right middle lobe 17 x 13 mm pulmonary nodule is not significantly different from and dating back to 07/29/2023. No new or enlarging pulmonary nodules. No focal consolidation, pn eumothorax or pleural effusion. AIRWAY: Patent and unremarkable. HEART: Size within normal limits. No significant coronary artery calcifications. MEDIASTINUM: No gross evidence of adenopathy. VASCULATURE: No aortic aneurysm. MUSCULOSKELETAL: Mild disc degeneration changes are present throughout the thoracolumbar spine. Stabl e probable T10 vertebral body hemangioma. SOFT TISSUES/LYMPH NODES: Unremarkable. LOWER NECK: No significant findings. ABDOMEN: ABDOMEN LIVER: Diffusely hypoattenuating parenchyma. GALLBLADDER AND BILE DUCTS: Unremarkable. PANCREAS: Unremarkable. SPLEEN: Unremarkable. ADRENAL GLANDS: Unremarkable. KIDNEYS AND URETERS: No evidence of hydronephrosis or obstructing renal calculus. The ureters are unr emarkable. Simple appearing renal cortical cysts. No follow-up recommended. PELVIS BLADDER: Unremarkable REPRODUCTIVE: Unremarkable. ABDOMEN & PELVIS STOMACH AND BOWEL: No evidence of bowel obstruction. Scattered colonic diverticula. Moderate to large stool throughout the colon. No rectal wall thickening visualized. PERITONEUM/RETROPERITONEUM: No evidence of pneumoperitoneum or free fluid. VASCULATURE: No evidence of aortic aneurysm. MUSCULOSKELETAL: No acute osseous abnormalities LYMPH NODES: No gross evidence for lymphadenopathy. Stable retroperitoneal lymph node near the bifurc ation of the aorta on the right measuring 6 mm. SOFT TISSUE/ABDOMINAL WALL: Unremarkable IMPRESSION: 1. Right upper lung pulmonary nodule is thought to be similar in size back to 08/28/2023 when measuri ng in more than one plane, suggesting technique on prior PET/CT was the cause of the suggested slight increase in size. 2. No evidence for rectal mass. No lymphadenopathy. No evidence for metastatic disease of the visual ized. Findings communicated to Stephie Herbert MD on 12/11/2024 8:[address] uRsh [place]. [facility], , 12/11/2024 8:44 PM
== END | disposition home or self-care (01) ==
LOC: RADCTMAIN 14:58
PROVIDERS: ATTEND Internal Medicine Hematology & Oncology
DX: C20 Malignant neoplasm of rectum (principal); R91.1 Solitary pulmonary nodule; Z71.3 Dietary counseling and surveillance
CPT/HCPCS: 82565; 84520; 71260; 74177; 36415; Q9967

== ENCOUNTER 2024-12-19 08:46 | Day surgery (SDC) | payer MEDICAID ==
[2024-12-15 10:52] VITALS: BMI 37.5
[~2024-12-19 08:46] MED LIST changes: -LACTATED RINGERS 1,000 ML IV SCH
[2024-12-19 09:04] VITALS: RESP 16; TEMP 98
[2024-12-19 09:17] LABS: Glucose,Whole Blood 120 mg/dL (70-110)
[2024-12-19] MEDS: LACTATED RINGERS 1,000 ML IV SCH (09:19)
[2024-12-19] MEDS: NA PHOS,M-B/NA PHOS,DI-BA 133 ML ENEMA RECTAL STA (09:20)
[2024-12-19] MEDS: IV FLUID CONTINUATION 1,000 ML IV ONE (09:25)
[2024-12-19] MEDS ORDERED: PROPOFOL 10 MG/ML 20 ML VIAL IV ONE (09:42)
--- NOTE | 2024-12-19 09:48 | P.GSHP ---
History of Present Illness H&P Date: 12/19/24 Chief Complaint: Rectal cancer 59-year-old female here for flexible sigmoidoscopy. Patient with history of rectal cancer treated with chemoradiation. Patient had complete response. No surgery was performed. Last flexible sigmoidoscopy 3 months ago. No symptoms. Past Medical History Past Medical History: Asthma, Cancer, Hypertension, Pneumonia, Thyroid Disorder Additional Past Medical History / Comment(s): RECTAL CANCER History of Any Multi-Drug Resistant Organisms: None Reported Past Surgical History: Tubal Ligation, Uterine Ablation Additional Past Surgical History / Comment(s): colonoscopies, flex. sigmoidoscopies Past Anesthesia/Blood Transfusion Reactions: Family History of Problems w/ Anesthesia Additional Past Anesthesia/Blood Transfusion Reaction / Comment(s): Mother takes alot to get her to go out. Smoking Status: Never smoker - Past Family History Father Family Medical History: Pulmonary Embolus Brother(s) Family Medical History: Cancer, Deep Vein Thrombosis (DVT) Additional Family Medical History / Comment(s): Bladder cancer. Medications and Allergies Home Medications Medication Instructions Recorded Confirmed Type Levothyroxine Sodium [Synthroid] 150 mcg PO QAM 07/20/18 12/19/24 History Multivitamin [Multivitamins Adult 1 tab PO DAILY 08/20/23 12/19/24 History Gummies] Levothyroxine Sodium [Synthroid] 50 mcg PO WEEKLY 05/15/24 12/19/24 History metFORMIN HCL 500 mg PO DAILY 05/15/24 12/19/24 History Losartan-Hctz 50-12.5 mg [Hyzaar 1 tab PO DAILY 09/01/24 12/19/24 History 50-12.5] Allergies Allergy/AdvReac Type Severity Reaction Status Date / Time aspirin Allergy Rash/Hives Verified 12/19/24 09:01 NSAIDS (Non-Steroidal Allergy Rash/Hives Verified 12/19/24 09:01 Anti-Inflamma Surgical - Exam Vital Signs Temp Pulse Resp BP Pulse Ox 98 F 65 16 144/76 95 12/19/24 09:03 12/19/24 09:03 12/19/24 09:03 12/19/24 09:03 12/19/24 09:03 Physical exam: General: Well-developed, well-nourished HEENT: Normocephalic, sclerae nonicteric Abdomen: Nontender, nondistended Extremities: No edema Neuro: Alert and oriented Results - Labs Abnormal Lab Results - Last 24 Hours (Table) 12/19/24 Range/Units 09:12 POC Glucose (mg/dL) 120 H (70-110) mg/dL Assessment and Plan (1) Rectal cancer Narrative/Plan: Will proceed with flexible sigmoidoscopy at this time. Current Visit: No Status: Acute Code(s): C20 - MALIGNANT NEOPLASM OF RECTUM SNOMED Code(s): 108533408
--- NOTE | 2024-12-19 09:57 | P.PCN ---
Date of Procedure: 12/19/24 Procedure(s) Performed: PREOPERATIVE DIAGNOSIS: Rectal cancer POSTOPERATIVE DIAGNOSIS: Normal exam PROCEDURE: Flexible sigmoidoscopy ANESTHESIA: MAC SURGEON: Rush James M.D. SPECIMENS: None ENDOSCOPIC PROCEDURE: The patient was placed on the endoscopy table in the left decubitus position. The Olympus colonoscope was inserted into the anus and passed under direct visualization to the mid sigmoid colon. The patient had some liquid stool that was evacuated. There were no neoplastic inflammatory or polypoid lesions throughout the sigmoid and rectum. There was some mild perianal skin irritation from previous radiation therapy. Retroflexion took place without abnormalities. Digital rectal examination was normal. The patient was taken to the recovery room in stable condition per anesthesia guidelines. RECOMMENDATIONS: Resume diet. Consider repeat colonoscopy in June.
[2024-12-19 10:58] VITALS: BP 121/73; PULSE 60
== END 2024-12-19 10:58 | disposition home or self-care (01) ==
LOC: ORWHC2ENDO 08:46
PROVIDERS: ATTEND Surgery
DX: Z12.11 Encounter for screening for malignant neoplasm of colon (principal); I10 Essential (primary) hypertension; E07.9 Disorder of thyroid, unspecified; J45.909 Unspecified asthma, uncomplicated; Z79.890 Hormone replacement therapy; Z88.6 Allergy status to analgesic agent; Z98.51 Tubal ligation status; Z85.048 Personal history of other malignant neoplasm of rectum, rectosigmoid junction, and anus; Z79.899 Other long term (current) drug therapy
CPT/HCPCS: 45330; J2704

== ENCOUNTER → 2025-01-30 | Outpatient (CLI) | payer MEDICAID ==
--- NOTE | 2025-01-31 07:23 | MM ---
Reason for Exam: Screening (asymptomatic). Last mammogram was performed 1 year(s) and 4 month(s) ago. Patient History: Menarche at age 11. First Full-Term at age 22. Postmenopausal. Colorectal cancer, age 58. Maternal grandmother had endometrial cancer, age 55. Risk Values: Rosaura 5 year model risk: 1.3%. NCI Lifetime model risk: 6.4%. Prior Study Comparison: 03/28/2018 Left Diagnostic Mammogram, [facility]. 08/04/2022 Bilateral MG 3D screening mammo w/cad, [facility]. 09/28/2023 Bilateral MG 3D screening mammo w/cad, [facility]. Tissue Density: The breasts are heterogeneously dense, which may obscure small masses. Findings: Analyzed By CAD. There are benign appearing dystrophic calcification bilaterally. There is no suspicious group of microcalcifications or new suspicious mass in either breast. Overall Assessment: Benign, BI-RAD 2 Management: Screening Mammogram of both breasts in 1 year. . Patient should continue monthly self-breast exams. A clinical breast exam by your physician is recommended on an annual basis. This exam should not preclude additional follow-up of suspicious palpable abnormalities. Note on Rosaura scores and lifetime risk: 1. A Rosaura score greater than 3% is considered moderate risk. If this is the case, consider specialist referral to assess eligibility for a risk reducing agent. 2. If overall lifetime risk for the development of breast cancer is 20% or higher, the patient may qualify for future screening with alternating mammogram and breast MRI. [facility], , 01/31/2025 7:20 AM. Electronically signed and approved by: Yannick Sanford M.D.
== END | disposition home or self-care (01) ==
LOC: RADMAMWWP 15:31
PROVIDERS: ATTEND Obstetrics & Gynecology
DX: Z12.31 Encounter for screening mammogram for malignant neoplasm of breast (principal); R92.333 Mammographic heterogeneous density, bilateral breasts; R92.1 Mammographic calcification found on diagnostic imaging of breast; Z78.0 Asymptomatic menopausal state
CPT/HCPCS: 77063; 77067